=== PATIENT | female | born 1975 | race Hispanic/Latino ===

== ENCOUNTER 2020-08-13 17:09 | Emergency (ER) | payer MEDICAID ==
[~2020-08-13 17:09] MED LIST: ERGO400C PO; NAPR250T4 PO; PRAS25CA3 PO; TAMO20TA4 PO
[2020-08-13] MEDS ORDERED: PROMETHAZINE HCL 25 MG/ML 1ML AMPULE IM ONE (17:10)
[2020-08-13] MEDS ORDERED: MORPHINE SULFATE 4 MG/1ML SYG ONE (18:10)
[2020-08-13] MEDS ORDERED: SODIUM CHLORIDE 0.9% 1000ML 1,000 ML IV ONE (18:10)
[2020-08-13 18:15] LABS: APPEARANCE,URINE Clear (CLEAR); BILIRUBIN,URINE Negative (NEGATIVE); COLOR,URINE Yellow (YELLOW); GLUCOSE, URINE (UA) Negative (NEGATIVE); KETONES,URINE Negative (NEGATIVE); LEUKOCYTE ESTERASE ,URINE Large (NEGATIVE); NITRATE,URINE Negative (NEGATIVE); OCCULT BLOOD,URINE Negative (NEGATIVE); PH,URINE 6.5 (5.0-8.0); PROTEIN,URINE Negative (NEGATIVE); UROBILINOGEN,URINE 0.2 mg/dL (0.2-1.0)
[2020-08-13 18:17] LABS: BASOPHILS % (AUTO) 0.5 % (0.0-5.0); EOSINOPHILS % (AUTO) 3.3 % (0.0-8.0); HEMATOCRIT 39.1 % (36-48); LYMPHOCYTES % (AUTO) 30.3 % (21.0-51.0); MEAN CORPUSCULAR HEMOGLOBIN 29.9 pg (27.0-33.0); MEAN CORPUSCULAR VOLUME 87.9 fL (79-99); MONOCYTES % (AUTO) 11.1 % (3.0-13.0); NEUTROPHILS % (AUTO) 54.5 % (40.0-77.0); PLATELET COUNT (AUTO) 215 K/uL (130-400); RED BLOOD CELL COUNT(AUTO) 4.45 MIL/uL (4.00-5.50); WHITE BLOOD COUNT (AUTO) 7.6 K/uL (4.8-10.8)
[2020-08-13 18:27] LABS: BACTERIA,URINE Few /HPF (None Seen); CARBON DIOXIDE 29 mmol/L (21-32); CHLORIDE 103 mmol/L (101-111); GLOMERULAR FILTR. RATE CALC 64 mL/min (>60); GLUCOSE,RANDOM 149 mg/dL (70-105); POTASSIUM 3.5 mmol/L (3.5-5.1); RBC,URINE None Seen /HPF (0-1); SODIUM SERUM 140 mmol/L (136-145); UREA NITROGEN, BLOOD 12 mg/dL (7-18)
[2020-08-13] MEDS ORDERED: IOHEXOL-350 75 ML VIAL IV ONE (18:30)
[2020-08-13 18:31] LABS: ALANINE AMINOTRANSFERASE 113 U/L (12-78); ALBUMIN 3.7 g/dL (3.5-5.0); ASPARTATE AMINOTRANSFERASE 64 U/L (10-37); BILIRUBIN,DIRECT < 0.1 mg/dL (0.0-0.3); BILIRUBIN,TOTAL 0.4 mg/dL (0.2-1.0); CREATINE KINASE, TOTAL 72 U/L (21-232); LIPASE 106 U/L (114-286); TOTAL PROTEIN, SERUM 7.7 g/dL (6.0-8.3)
[2020-08-13 18:33] LABS: INR 0.92 (0.85-1.15); PARTIAL THROMBOPLASTIN TIME 25.1 SEC (26.3-35.5)
== END 2020-08-13 21:39 | disposition home or self-care (01) ==
LOC: EDH 17:09
DX: A08.4 Viral intestinal infection, unspecified (principal); Z85.3 Personal history of malignant neoplasm of breast; Z88.8 Allergy status to other drugs, medicaments and biological substances; Z90.710 Acquired absence of both cervix and uterus; Z85.54 Personal history of malignant neoplasm of ureter; Z85.43 Personal history of malignant neoplasm of ovary
CPT/HCPCS: 36415; 74178; 80048; 80076; 81001; 82550; 83690; 85025; 85610; 85730; 87088; 96361; 96374; 96375; 99285; J2270; J2550; J7030; Q9967

== ENCOUNTER 2024-09-22 03:11 | Emergency (ER) | payer BC, MEDICAID ==
[~2024-09-22] VITALS: Ht 167.6 cm; Wt 98.9 kg
[~2024-09-22 03:11] MED LIST changes: +NAPR-1196 PO; -NAPR250T4 PO; +PRAS25CA10 PO; -PRAS25CA3 PO
--- NOTE | 2024-09-22 03:55 | ERN ---
ED Note History of Present Illness Stated Complaint: C/O PAIN TO LEFT FOOT; POSSIBLE INSECT BITE Chief Complaint: FOOT INJURY/PAIN Time Seen by MD: 03:22 Dictation: This is a 49-year-old obese female who presented to the emergency room complaining of left foot pain. She stated that she walked out of the house onto a concrete eliceo to say goodbye to her without any shoes and on barefoot and she stepped on irregular surface. She felt a sudden sting followed by severe pain. She does not think that she stepped on any nails or thorns. She did not see the insect but definitely feels that it was a bite No fever chills Temperature 97.5 pulse 81 respirations 20 blood pressure 134/81 with a pulse oximetry of 97% on room air She has a previous history of double mastectomy for breast cancer Allergies: Coded Allergies: ondansetron (Verified Allergy, Unknown, 06/12/18) Home Meds Active Scripts Doxycycline Monohydrate (Doxycycline Monohydrate) 100 Mg Tablet, 1 TAB PO BID for 10 Days, #20 TAB 0 Refills Prov:IAN LOPES MD 09/22/24 Reported Medications Prasterone (Dhea) (Dhea) 25 Mg Capsule, 25 MG PO DAILY, CAP 06/12/18 Cholecalciferol (Vitamin D3) (Vitamin D) 400 Unit Capsule, 400 UNIT PO DAILY, CAP 06/12/18 Naproxen (Naproxen) 250 Mg Tablet, 250 MG PO BID, TAB 06/12/18 Tamoxifen Citrate (Tamoxifen Citrate) 20 Mg Tablet, 20 MG PO DAILY, TAB 06/12/18 Past Medical History Past Medical History: Other Additional Past Medical Hx: HX OF BREAST CA Surgical History: Hysterectomy, Other Surgical History Other: DOUBLE MASECTOMY Family History: Negative Social History: Negative History: Not Applicable RN Note Reviewed/Agreed w/PFSH: Yes Review of System Dictation As described in the history of present illness Constitutional: Negative for fever,chills, and weight loss Eyes: Negative for injury, pain,redness, and discharge ENT: Negative for injury,pain or swelling Cardiovascular: Negative for chest pain, palpitations, and edema Respiratory: Negative for shortness of breath, cough, and wheezing, Abdomen/GI: Negative for abdominal pain, nausea, vomiting, diarrhea, and constipation Back: Negative for injury and pain : Negative for injury, bleeding and discharge MS/Extremity: Negative for injury and deformity left foot plantar aspect below the toes there was a small area of tenderness on palpation a pin size bite site I did not see any extending erythema or cellulitis on the dorsum of the foot calf or other areas. She described tingling pain when she bears weight on the foot Skin: Negative for rash, and discoloration Neuro: Negative for headache, weakness, numbness, tingling, and seizure Psych: Negative for suicide ideation, homicidal ideation, and hallucinations Initial Vital Sign VS Vital Signs Date Time Temp Pulse Resp B/P (MAP) Pulse Ox O2 Delivery O2 Flow Rate FiO2 09/22/24 03:13 97.5 81 20 134/81 97 Room Air 09/22/24 04:46 0 21 Physical Exam Dictation General: awake, alert, NAD obese female Head/Face: Normocephalic, atraumatic Eyes: PERRL, EOMI, vision at baseline ENT: oral cavity clear, TMs clear, no signs of infection Neck: Trachea midline, supple, no nuchal rigidity Cardiovascular: RRR, normal S1/S2, No MRGs, no JVD Respiratory: CTAB, no respiratory distress, No rales or wheezes Abdomen: Soft, non-tender, non-distended, normal bowel sounds, no guarding or rebound. Skin: Warm, dry, normal turgor, no rash MS/Extremity: Pulses equal, no cyanosis, neurovascular intact, FROM left foot on the plantar surface base of the 5th and 6th metatarsal heads area of tenderness on palpation, no drainage pus or cellulitis noted. No foreign body or splinter noted. Neuro: COAx4, GCS 15, strength 5/5, CN 2-12 intact, normal cerebellar exam, normal gait, Psych: Normal behavior, mood, and affect normal Extremities-trace edema without any palpable cords, Homans sign is negative Results (Laboratory/Radiology) Labs Reviewed?: Yes ED Course ED Course Orders Procedure Category Date Status Time Ketorolac PHA 09/22/24 Complete Tromethamine 30mg/Ml 04:30 Doxycycline Hyclate PHA 09/22/24 Complete (Doxycycline Hyclate 04:30 Current Medications Medications (Trade) Dose Ordered Sig/Francesco Route PRN Reason Start Time Stop Time Status Last Admin Dose Admin Doxycycline Hyclate (Doxycycline Hyclate) 100 mg ONCE PO 09/22/24 04:30 09/22/24 04:58 DC 09/22/24 04:36 Ketorolac Tromethamine (toRADol) 30 mg ONCE ONCE IM 09/22/24 04:30 09/22/24 04:31 DC 09/22/24 04:36 Vital Signs Date Time Temp Pulse Resp B/P (MAP) Pulse Ox O2 Delivery O2 Flow Rate FiO2 09/22/24 04:46 97.9 84 18 134/81 97 Room Air* 0 21 09/22/24 03:13 97.5 81 20 134/81 97 Room Air We will administer medications according to the patient's complaint. Once the results are available, will review and personally interpreted the labs to rule out any acute life-threatening emergency the trach require immediate intervention and treatment. I will then re-evaluate the patient after treatment and diagnostic exams have return to determine whether the patient requires any further testing, can safely be discharged home or need further admission to hospital for additional treatment and evaluation As there is a question of an insect bite, I discussed with the patient that it would be reasonable to treat her with an antibiotic and she could take [id number] pain medications. To protect the foot and reduce the pain, I gave her a boot to splint the plantar surface until she feels better. Medical Decision Making MDM MDM: Differential diagnosis: Puncture wound, insect bite, plantar fasciitis Rationale: Tests considered and ordered secondary to shared decision making include: Previous outside records reviewed: Old ER visits. Risk of complication and/or morbidity or mortality of patient management: None Medications-Per medication reconciliation Need for hospitalization: Patient does not meet criteria for hospitalization. Need for emergency major/minor surgery: No There are no social concerns with this patient. Prescription drug management Prescriptions will include symptomatic care Patient's prior external medical records from other ER visits were reviewed by me as indicated. Prior testing and results from previous visits were reviewed. Prior tests were taken into account with medical decision making and resource utilization, independent historian/historians were used to obtain complete medical history. I independently interpreted the test that were performed, results were reviewed by me and considered findings on radiology if ordered. Medical management and examination interpretation discussions were had by me with other qualified healthcare professionals as indicated for the patient's care. Problem List Problem List: (1) Insect bite of foot, left DX & DISP Disposition: Discharge Departure Impression: Primary Impression: Insect bite of foot, left Condition: Stable Scripts Doxycycline Monohydrate (Doxycycline Monohydrate) 100 Mg Tablet 1 TAB PO BID for 10 Days, #20 TAB 0 Refills Prov: IAN LOPES MD 09/22/24 Additional Instructions: Patient and the caregiver have been informed of all the diagnostic tests and the imaging conducted during the today's visit to the emergency room and has verbalized understanding of the results I have personally reviewed and interp reted all diagnostic exams performed here in the ER today as well as the vital signs documented by the nursing staff. The patient is now being discharged to home and should follow up with the primary care physician or the specialist as directed by the ER staff. Follow-up with primary care provider in 1 to 2 days. Take medications as directed here in the emergency room. Okay to continue home medications unless otherwise discussed during your visit in the emergency room today. Return to your nearest emergency room if symptoms worsen or if there is no improvement. Call 911 if you need immediate assistance. Take Tylenol or Motrin [id number] as needed and if no contraindications are present. Increase oral hydration. A wound culture or urine culture was ordered here in the emergency room department please follow-up with primary care provider and advise them to get repeat ports from our facility. If you had any Maikel wrap/splints that were applied here, please do not remove them until you see your primary care or specialty. Referrals: PAVEL DRISCOLL (PCP) IAN LOPES MD Sep 22, 2024 03:55
[2024-09-22] MEDS ORDERED: DOXY100T21 PO (04:30)
[2024-09-22] MEDS: ketOROlac 30MG VIAL (30MG/ML) IM ONE (04:36)
[2024-09-22] MEDS: DOXYCYCLINE HYCLATE 100 MG TABLET PO SCH (04:36)
[2024-09-22 04:46] VITALS: BP 134/81; PULSE 84; RESP 18; TEMP 97.8; O2SAT 97
== END 2024-09-22 04:58 | disposition home or self-care (01) ==
LOC: EDH 03:11
DX: S90.862A Insect bite (nonvenomous), left foot, initial encounter (principal); Z79.899 Other long term (current) drug therapy; Z90.710 Acquired absence of both cervix and uterus; Z98.890 Other specified postprocedural states; W57.XXXA Bitten or stung by nonvenomous insect and other nonvenomous arthropods, initial encounter; Y93.89 Activity, other specified; Y92.89 Other specified places as the place of occurrence of the external cause; Y99.8 Other external cause status
CPT/HCPCS: 99284; 96372; J1885

== ENCOUNTER 2025-01-15 19:03 | Emergency (ER) | payer BC ==
[~2025-01-15] VITALS: Ht 167.6 cm; Wt 103.0 kg
[~2025-01-15 19:03] MED LIST changes: +DOXY100T21 PO
--- NOTE | 2025-01-15 19:52 | ERN ---
ED Note History of Present Illness Stated Complaint: RIGHT LEG PAIN Chief Complaint: Lower Extremity Pain/Injury Time Seen by MD: 19:11 Time Seen by Midlevel: 19:11 Dictation: The patient is a 49-year-old female with a history of breast cancer, hystere ctomy who presents to the emergency department with complaints of nontraumatic right leg pain onset two weeks ago. Patient reports she feels her calf tightness and cramping. Patient also reports buttocks pain radiating down her right leg. Allergies: Coded Allergies: ondansetron (Verified Allergy, Unknown, 06/12/18) Home Meds Active Scripts Doxycycline Monohydrate (Doxycycline Monohydrate) 100 Mg Tablet, 1 TAB PO BID for 10 Days, #20 TAB 0 Refills Prov:IAN LOPES MD 09/22/24 Reported Medications Prasterone (Dhea) (Dhea) 25 Mg Capsule, 25 MG PO DAILY, CAP 06/12/18 Cholecalciferol (Vitamin D3) (Vitamin D) 400 Unit Capsule, 400 UNIT PO DAILY, CAP 06/12/18 Naproxen (Naproxen) 250 Mg Tablet, 250 MG PO BID, TAB 06/12/18 Tamoxifen Citrate (Tamoxifen Citrate) 20 Mg Tablet, 20 MG PO DAILY, TAB 06/12/18 Past Medical History Past Medical History: Other Additional Past Medical Hx: HX OF BREAST CA (IN REMISSION) Surgical History: Hysterectomy, Cholecystectomy, Other, Surgical History Other: DOUBLE MASTECTOMY Family History: Negative Social History: Negative History: Not Applicable RN Note Reviewed/Agreed w/PFSH: Yes Review of System Dictation Constitutional: Negative for fever,chills, and weight loss Eyes: Negative for injury, pain,redness, and discharge ENT: Negative for injury,pain or swelling Cardiovascular: Negative for chest pain, palpitations, and edema Respiratory: Negative for shortness of breath, cough, and wheezing, Abdomen/GI: Negative for abdominal pain, nausea, vomiting, diarrhea, and constipation Back: Negative for injury and pain : Negative for injury, bleeding and discharge MS/Extremity: Positive for right leg pain Skin: Negative for rash, and discoloration Neuro: Negative for headache, weakness, numbness, tingling, and seizure Psych: Negative for suicide ideation, homicidal ideation, and hallucinations Initial Vital Sign VS Vital Signs Date Time Temp Pulse Resp B/P (MAP) Pulse Ox O2 Delivery O2 Flow Rate FiO2 01/15/25 19:29 98.6 79 18 132/75 98 Room Air 01/15/25 20:39 0 21 Physical Exam Dictation Vital Signs reviewed General Appearance: Alert, oriented x 3, no acute distress, well developed, nourished. Head and Face: non-traumatic. Eyes: PERRL, pink conjunctivas, eyelid no trauma, anterior chamber with arcus senilis. Ears: Pinnas intact and no signs of trauma or erythema ear canals clear and no discharge TM no erythema Nose: No discharge, no bleeding. Oropharynx: Mouth normal, tongue pink. pharynx clear,no erythema, tonsils no exudates, no abscesses noted, mucous membrane moist Neck: Supple, non-tender, no thyromegaly, no masses, no JVD, no bruits Breast:Deferred Chest:No tenderness, no crepitus, no paradoxical movement, no retractions Lungs:Clear, well-ventilated, symmetric, no rales, no wheezing, no rhonchi, no stridor, good breath sounds bilaterally Heart: Regular rate, regular rhythm, no murmur, no gallops Vascular: no peripheral edema, posterior tibialis 3+ bilaterally Abdomen: Soft, positive bowel sounds, nondistended, no guarding, nontender, no rebound, no masses no hepatomegaly, no splenomegaly, no Yip's sign, no hernias. Rectal: Deferred Genital: Deferred Neurological: Normal speech, motor function intact, sensory function intact Musculoskeletal: Neck nontender, full range of motion, back nontender, full range of motion, Extremities: nontender, full range of motion Skin: Color pink, dry, no turgor, no rash, no lacerations, no abrasions, no contusions. Lymphatic: Deferred Results (Laboratory/Radiology) Laboratory/Radiology Laboratory Tests Test 01/15/25 20:22 White Blood Count 10.1 K/uL (4.8-10.8) Red Blood Count 4.21 MIL/uL (4.00-5.50) Hemoglobin 12.6 g/dL (12.0-16.0) Hematocrit 37.3 % (36-48) Mean Corpuscular Volume 88.6 fL (79-99) Mean Corpuscular Hemoglobin 29.9 pg (27.0-33.0) Mean Corpuscular Hemoglobin Concent 33.8 g/dL (32.0-36.0) Red Cell Distribution Width 12.4 % (11.0-15.5) Platelet Count 220 K/uL (130-400) Mean Platelet Volume 11.7 fL (7.5-10.5) H Immature Granulocyte % (Auto) 0.5 % (0-1) Neutrophils (%) (Auto) 52.0 % (40.0-77.0) Lymphocytes (%) (Auto) 33.9 % (21.0-51.0) Monocytes (%) (Auto) 11.2 % (3.0-13.0) Eosinophils (%) (Auto) 2.0 % (0.0-8.0) Basophils (%) (Auto) 0.4 % (0.0-5.0) Neutrophils # (Auto) 5.3 K/uL (1.8-7.7) Lymphocytes # (Auto) 3.4 K/uL (1.0-4.8) Monocytes # (Auto) 1.1 K/uL (0.1-1.0) H Eosinophils # (Auto) 0.20 K/uL (0.00-0.70) Basophils # (Auto) 0.04 K/uL (0.00-0.20) Absolute Immature Granulocyte (auto 0.05 K/uL (0-1) Nucleated Red Blood Cells 0.0 % (0.0-0.19) Sodium Level 143 mmol/L (136-145) Potassium Level 3.9 mmol/L (3.5-5.1) Chloride Level 105 mmol/L (101-111) Carbon Dioxide Level 30 mmol/L (21-32) Blood Urea Nitrogen 14 mg/dL (7-18) Creatinine 1.0 mg/dL (0.5-1.0) Glomerular Filtration Rate Calc 69 mL/min (>90) Random Glucose 107 mg/dL (70-105) H Total Calcium 9.1 mg/dL (8.5-10.1) Magnesium Level 2.10 mg/dL (1.80-2.40) Total Creatine Kinase 68 U/L (21-232) Labs Reviewed?: Yes ED Course ED Course Orders Procedure Category Date Status Time Orphenadrine Citrate PHA 01/15/25 Complete (Norflex) 20:00 Triamcinolone Acet PHA 01/15/25 Complete 40mg/Ml 1ml (Kenalog 20:00 Us Venous Doppler US 01/15/25 Taken Unilateral 19:45 Cbc With Differential LAB 01/15/25 Complete 19:45 Basic Metabolic Panel LAB 01/15/25 Complete 19:45 Magnesium LAB 01/15/25 Complete 19:45 Creatine Kinase, Total LAB 01/15/25 Complete 19:45 Current Medications Medications (Trade) Dose Ordered Sig/Francesco Route PRN Reason Start Time Stop Time Status Last Admin Dose Admin Orphenadrine Citrate (Norflex) 60 mg ONCE ONCE IM 01/15/25 20:00 01/15/25 20:01 DC 01/15/25 20:48 Triamcinolone Acetonide (Kenalog 40) 40 mg ONCE ONCE IM 01/15/25 20:00 01/15/25 20:01 DC 01/15/25 20:49 Vital Signs Date Time Temp Pulse Resp B/P (MAP) Pulse Ox O2 Delivery O2 Flow Rate FiO2 01/15/25 20:39 98.4 69 19 118/60 98 Room Air* 0 21 01/15/25 19:29 98.6 79 18 132/75 98 Room Air Medical Decision Making MDM The patient is a 49-year-old female with a history of breast cancer, hysterectomy who presents to the emergency department with complaints of nontraumatic right leg pain onset two weeks ago. Patient reports she feels her calf tightness and cramping. Patient also reports buttocks pain radiating down her right leg. CBC showed no leukocytosis, no anemia, chemistry showed no electrolyte imbalance, normal CK level,ultrasound negative for DVT. Patient with tenderness to I buttocks. Radiates down her right leg. Probably due sciatic nerve pain. Patient in no acute distress, neurovascularly intact will be discharged to follow up with PCP. Differential diagnosis: DVT, electrolyte imbalance, dehydration, sciatic nerve pain, rhabdomyolysis Need for hospitalization: Patient does not meet criteria for hospitalization. There are no social concerns with this patient. DX & DISP Disposition: Discharge Departure Impression: Primary Impression: Sciatic nerve pain Additional Impression: Right leg pain Condition: Stable Scripts Cyclobenzaprine HCl (Flexeril) 10 Mg Tab 10 MG PO TID for muscle sstiffness, #14 TAB 0 Refills Prov: MARIA EUGENIA WINTERS [employer] 01/15/25 Ibuprofen (Ibuprofen) 600 Mg Tablet 600 MG PO Q6H PRN for PAIN, #15 TAB Prov: MARIA EUGENIA WINTERS 01/15/25 Additional Instructions: Is follow up with your primary doctor in 1-2 days. If symptoms worsen please return to ER. FOLLOW-UP WITH PRIMARY CARE PROVIDER IN 1 TO 2 DAYS. TAKE MEDICATIONS DIRECTED HERE IN THE EMERGENCY ROOM. OKAY TO CONTINUE HOME MEDICATIONS UNLESS OTHERWISE DISCUSSED DURING YOUR VISIT IN THE EMERGENCY ROOM TODAY. RETURN TO YOUR NEAREST EMERGENCY ROOM IF SYMPTOMS WORSEN OR IF THERE IS NO IMPROVEMENT. CALL 911 IF YOU NEED IMMEDIATE ASSISTANCE. TAKE TYLENOL OR MOTRIN [id number] NEEDED AND IF NO CONTRAINDICATIONS ARE PRESENT. INCREASE ORAL HYDRATION. A WOUND CULTURE OR URINE CULTURE WAS ORDERED HERE IN THE EMERGENCY ROOM DEPARTMENT PLEASE FOLLOW-UP WITH PRIMARY CARE PROVIDER AND ADVISE THEM TO GET REPEAT PORTS FROM OUR FACILITY. IF YOU HAD ANY JEFFRY WRAP/SPLINTS THAT WERE APPLIED HERE, PLEASE DO NOT REMOVE THEM UNTIL YOU SEE YOUR PRIMARY CARE OR SPECIALTY. Referrals: PAVEL DRISCOLL (PCP) Time of Disposition: 21:42 I have reviewed the case, and I agree with, Diagnosis and Plan MARIA EUGENIA WINTERS Jan 15, 2025 19:52
[2025-01-15 20:35] LABS: BASOPHILS # (AUTO) 0.04 K/uL (0.00-0.20); BASOPHILS % (AUTO) 0.4 % (0.0-5.0); HEMATOCRIT 37.3 % (36-48); IMMATURE GRANULOCYTE ABSOLUTE 0.05 K/uL (0-1); LYMPHOCYTES # (AUTO) 3.4 K/uL (1.0-4.8); LYMPHOCYTES % (AUTO) 33.9 % (21.0-51.0); MEAN CORPUSCULAR HEMOGLOBIN 29.9 pg (27.0-33.0); MEAN CORPUSCULAR HGB CONC 33.8 g/dL (32.0-36.0); MEAN CORPUSCULAR VOLUME 88.6 fL (79-99); MONOCYTES # (AUTO) 1.1 K/uL (0.1-1.0); MONOCYTES % (AUTO) 11.2 % (3.0-13.0); NEUTROPHILS # (AUTO) 5.3 K/uL (1.8-7.7); PLATELET COUNT (AUTO) 220 K/uL (130-400); RED BLOOD CELL COUNT(AUTO) 4.21 MIL/uL (4.00-5.50); RED CELL DISTRIBUTION WIDTH 12.4 % (11.0-15.5); WHITE BLOOD COUNT (AUTO) 10.1 K/uL (4.8-10.8)
[2025-01-15] MEDS: ORPHENADRINE 60MG/2ML IM ONE (20:48)
[2025-01-15] MEDS: TRIAMCINOLONE ACETONIDE 40 MG/ML 1ML VIAL IM ONE (20:49)
[2025-01-15 20:50] LABS: POTASSIUM 3.9 mmol/L (3.5-5.1)
[2025-01-15 20:55] LABS: MAGNESIUM 2.1 mg/dL (1.80-2.40)
[2025-01-15] MEDS ORDERED: IBUP-2070 PO (21:43)
[2025-01-15] MEDS ORDERED: CYCL10TA16 PO (21:43)
--- NOTE | 2025-01-15 21:43 | HMCIMG ---
US VENOUS DOPPLER UNILATERAL CLINICAL HISTORY: right calf pain COMPARISON: None FINDINGS: Right lower extremity venous Doppler ultrasound was performed. The greater saphenous, common femoral, deep femoral, femoral , popliteal veins are widely patent and easily compressible with the ultrasound probe. Calf veins appear normal as well. There is normal response to compression and augmentation. IMPRESSION: Normal right lower extremity venous Doppler ultrasound.
[2025-01-15 22:16] VITALS: BP 120/63; PULSE 73; RESP 19; TEMP 98.3; O2SAT 98
== END 2025-01-15 22:20 | disposition home or self-care (01) ==
LOC: EDH 19:03
DX: M54.31 Sciatica, right side (principal); M79.661 Pain in right lower leg; Z85.3 Personal history of malignant neoplasm of breast; Z90.49 Acquired absence of other specified parts of digestive tract; Z90.710 Acquired absence of both cervix and uterus; Z79.899 Other long term (current) drug therapy
CPT/HCPCS: 99284; 93971; 82550; 83735; 80048; 85025; 36415; 96372 ×2; J3301; J2360